=== PATIENT | female | born 1955 | race Caucasian/White ===

== ENCOUNTER 2022-03-26 17:47 | Observation (INO) | payer MEDICARE, SELFPAY ==
[2022-03-26] VITALS (10 sets, daily range): BP systolic 109–141; BP diastolic 68–91; PULSE 53–76; RESP 13–18; TEMP 36.5–36.9; O2SAT 96–100; BMI 28.4
--- NOTE | ~2022-03-26 | XR_ITS ---
EXAMINATION: XR chest 2V Exam Date/Time: 03/26/2022 18:40 CDT CLINICAL HISTORY: cp Comparison: None available. RESULT: Lines, tubes, and devices: None. Lungs and pleura: Clear. Cardiomediastinal silhouette: Unremarkable cardiomediastinal silhouette. Other: No acute osseous or upper abdominal finding. IMPRESSION: No acute cardiopulmonary process Reviewed, dictated and finalized at location K.
--- NOTE | 2022-03-26 18:03 | ECG_ITS ---
Measurements Intervals [place] Rate: 73 P: 45 MN: 148 QRS: 32 QRSD: 81 T: 51 QT: 367 QTc: 405 Interpretive Statements SINUS RHYTHM NORMAL ECG Electronically Signed On 03-26-2022 19:03:59 CDT by Karl Kuo D.O.
--- NOTE | 2022-03-26 18:20 | ED.CHESTPAIN ---
HPI - Chest Pain General Chief Complaint: Chest Pain Stated Complaint: epigastric/upper back pain Time Seen by Provider: 03/26/22 18:20 Source: patient and family Mode of arrival: ambulatory Limitations: no limitations History of Present Illness HPI narrative: Patient is 66 years old white female presents to the ED with chest pain. Patient was walking, about 1 hour ago, started having pain at the middle of her back, radiating to the front of the chest bilaterally, associated with shortness of breath, 10 out of 10. Currently 1 out of 10. Patient had LA in 2019, 2 stents, patient reports today symptoms exactly the same when she had LA 2018. Patient on baby aspirin once a day. Related Data Home Medications Medication Instructions Recorded Confirmed pravastatin 03/26/22 Allergies Allergy/AdvReac Type Severity Reaction Status Date / Time codeine Allergy Confusion Verified 03/26/22 18:26 ibuprofen [From Motrin] Allergy Heartburn Verified 03/26/22 18:26 Penicillins Allergy Hives Verified 03/26/22 18:26 morphine AdvReac Confusion Verified 03/26/22 18:26 Review of Systems Review of Systems: All systems reviewed & are unremarkable except as noted in HPI and below Exam Narrative: General appearance: Well-developed, well-nourished Skin: Normal color Head: Normocephalic, nontraumatic Eyes: Clear conjunctiva ENT: Oropharynx normal, ears normal, nose normal Neck: Supple, nontender Chest and respiratory: Airway patent, no respiratory distress, no accessory muscle use Heart: Regular rate/rhythm Abdomen: Soft, nontender, no organomegaly, quiet bowel sounds Vascular: Normal peripheral pulses, normal capillary refill. Musculoskeletal: Normal range of motion, nontender back Neurologic: Alert and oriented ?3, IMMIGRATION [place] is normal as tested, no gross motor deficit Course Consultations Consultation #1: Dr. Hodeg Date: 03/26/22 Time: 19:24 Consultation #2: Amy, nurse practitioner, hospitalist accepted patient admission. Date: 03/26/22 Time: 19:24 Vital Signs Vital signs: Vital Signs Temperature 36.9 C 03/26/22 18:03 Pulse Rate 76 03/26/22 18:03 Respiratory Rate 13 03/26/22 18:03 Blood Pressure 141/85 H 03/26/22 18:03 Pulse Oximetry 98 03/26/22 18:03 Temperature 36.9 C 03/26/22 18:03 Pulse Rate 76 03/26/22 18:03 Respiratory Rate 13 03/26/22 18:03 Blood Pressure 141/85 H 03/26/22 18:03 Pulse Oximetry 98 03/26/22 18:03 [facility] - Chest Pain Imaging Data Radiologist's impression: Impressions Chest X-Ray 03/26/22 18:48 IMPRESSION: No acute cardiopulmonary process ECG Data EKG #1: Attestation: I personally reviewed and interpreted this ECG as follows: ECG completion date: 03/26/22 ECG completion time: 18:33 Interpretation: Normal sinus rhythm at 73 bpm, normal EKG Critical Care Time Critical Care Time Critical Care Time: Yes Total Critical Care Time: 30 Discharge Plan Discharge Clinical Impression: Chest pain Qualifiers: Chest pain type: unspecified Qualified Code(s): R07.9 - Chest pain, unspecified Patient Disposition: Still a Patient Condition: Improved Additional Instructions: Admit to hospitalist, consult filling winder. Prescriptions: No Action pravastatin 40 mg tablet RF: 0 Follow-up/Referrals: Rashawn,Leona Kemp MD [Primary Care Provider] - Quality HEART score for chest pain patients History: highly suspicioius ECG: normal Age: > or = to 65 years Risk factors: > or = to 3 risk factors of atherosclerotic disease Troponin: < or = to 1x normal limit Heart score: 6
[2022-03-26 18:23] LABS: Basophils Absolute Auto 0.1 K/mm3 (0.0-0.1); Basophils Percent Auto 1.2 % (0.2-1.2); Eosinophils Absolute Auto 0.2 K/mm3 (0-0.3); Hemoglobin 14.3 g/dL (12.0-15.0); Immature Granulocyte Absolute 0.01 K/mm3 (0.00-0.031); Immature Granulocyte Percent A 0.2 % (0-0.5); Lymphocytes Absolute Auto 1.65 K/mm3 (0.9-3.2); Lymphocytes Percent Auto 38.7 % (18.3-44.2); Mean Corpuscular HGB Conc 34.9 g/dl (32-36); Mean Corpuscular Hemoglobin 33.9 pg (26-34); Mean Corpuscular Volume 97.2 fl (80-100); Mean Platelet Volume 9.6 fl (7.4-10.4); Monocytes Absolute Auto 0.3 K/mm3 (0.1-0.6); Neutrophils Percent Auto 47.9 % (45.5-73.1); Platelet Count Result 267 k/mm3 (150-375); Red Blood Count 4.22 M/mm3 (4.2-5.4); Red Cell Distribution Width 12.2 % (11.5-14.5); White Blood Count 4.3 K/mm3 (4.5-10.0)
[2022-03-26 18:34] LABS: INR 1.1; Prothrombin Time 13.3 Seconds (11.1-14.7)
[2022-03-26 18:36] LABS: Alanine Aminotransferase 20 U/L (6-35); Albumin Level 4.1 g/dL (3.5-5.1); Alkaline Phosphatase 70 U/L (38-126); Anion Gap 6 mmol/L (8-16); Aspartate Amino Transferase 28 U/L (14-36); Bilirubin,Total 0.3 mg/dL (0.2-1.3); Blood Urea Nitrogen 37 mg/dL (7-17); Calcium 8.7 mg/dL (8.4-10.2); Carbon Dioxide 27 mmol/L (22-30); Chloride 103 mmol/L (98-107); Estimated CRCL calculation 51 ml/min; Estimated Glomerular Filt Rate > 60; Glucose 106 mg/dL (65-110); Lipase 136 U/L (23-300); Sodium 136 mmol/L (137-145)
[2022-03-26] MEDS: ASPIRIN 81 MG CHEWABLE TABLET 324 MG PO (18:37)
[2022-03-26] MEDS: METOPROLOL TARTRATE 50 MG TAB 25 MG PO (18:39)
[2022-03-26 18:47] LABS: Troponin I < 0.012 ng/mL (0.000-0.034)
[2022-03-26 19:23] LABS: NT Pro B Type Natriuretic Pept 36 pg/mL (5-100)
[2022-03-26] MEDS: ENOXAPARIN 80 MG/0.8 ML SYRINGE SUB-Q (19:41)
[2022-03-26 20:08] LABS: SARS-CoV-2 RNA PCR Negative
--- NOTE | 2022-03-26 20:10 | PM.IMHP ---
H&P: HPI History of Present Illness Date/Time: 03/26/22 20:10 Chief Complaint: Chest pain. Narrative: This is a 66-year-old female with past medical history significant for coronary artery disease status post stent placement, dyslipidemia. Patient presented to the emergency room due to chest pain was she was walking in at a normal pace pain was localized to the retrosternal area with radiation to the back and around it lasted for roughly 20 minutes and a was not acting diaphoresis, nausea, vomiting, syncope, near syncope, lightheadedness, or dizziness, no nausea, no vomiting, no fevers, no rigors, no chills, no cough, no leg swelling, no ankle swelling. Patient has been in her usual state of health up until this episode in the morning. Preliminary workup has been essentially nonrevealing. Patient has been admitted for further evaluation ,management and treatment. Review of Systems Review of Systems: Chest pain. Constitutional: Constitutional: Denies chills, Denies fatigue, Denies fever(s), Denies malaise, Denies night sweats and Denies weakness Eyes: Eyes: Denies change in vision ENT: Denies dysphagia, Denies vertigo, Denies dizziness, Denies nasal congestion, Denies nasal discharge, Denies nasal obstruction and Denies odynophagia Cardiovascular: Cardiovascular: Reports chest pain, Denies pedal edema, Denies leg edema, Denies lightheadedness, Denies radiating jaw, neck or arm pain, Denies palpitations and Denies dyspnea on exertion Respiratory: Respiratory: Denies cough Gastrointestinal: Gastrointestinal: Denies abdominal pain, Denies dyspepsia, Denies heartburn, Denies diarrhea, Denies nausea and Denies vomiting Genitourinary: Genitourinary: Denies dysuria Musculoskeletal: Musculoskeletal: Denies back pain, Denies arthralgias and Denies joint swelling Integumentary/Breasts: Skin/Breast: Denies rash Neurologic: Denies focal weakness and Denies Sensory deficit (Neuro) Psychiatric: Psychiatric: Reports no additional psychiatric complaints and Reports as per HPI Endocrine: Endocrine: Denies cold intolerance, Denies heat intolerance, Denies polyphagia, Denies polydipsia and Denies palpitations Hematologic/Lymphatic: Hematologic/Lymphatic: Reports no additional hematologic/lymphatic complaints and Reports as per HPI Allergic/Immunologic: Allergic/Immunologic: Reports no additional allergic/immunologic complaints and Reports as per HPI [facility] Family History Family History (Updated 03/27/22 @ 00:17 by Ivania Montaño RN) Other Thyroid cancer cousin Father Skin cancer Leukemia Mother Congenital heart defect Hypertension Other Skin cancer paternal uncle Other Skin cancer paternal cousin Grandparent Diabetes mellitus Social History Social History Smoking status: Former smoker Alcohol intake: never Substance use: never Spiritual care concerns: No Meds Home Medications and Allergies Home Medications Medication Instructions Recorded Confirmed Type Centrum Silver Ultra Women's 1 tab-cap PO DAILY 03/26/22 03/26/22 History aspirin 81 mg PO DAILY 03/26/22 03/26/22 History omega-3 fatty acids-vitamin E 1 cap PO DAILY 03/26/22 03/26/22 History [Fish Oil] pravastatin 40 mg PO HS 03/26/22 03/26/22 History turmeric root-yoly root ext 1 tab-cap PO DAILY 03/26/22 03/26/22 History zinc gluconate 50 mg PO DAILY 03/26/22 03/26/22 History Allergies Allergy/AdvReac Type Severity Reaction Status Date / Time ibuprofen [From Motrin] Allergy Heartburn Verified 03/26/22 23:45 Penicillins Allergy Hives Verified 03/26/22 18:26 Sulfa (Sulfonamide Allergy Hives Verified 03/26/22 23:46 Antibiotics) codeine AdvReac Confusion Verified 03/26/22 23:46 morphine AdvReac Confusion Verified 03/26/22 23:45 Vital Signs Vital Signs - 24 hr 03/26/22 18:03 03/26/22 18:39 03/26/22 19:03 Temperature 98.4 F Pulse Rate 76 69 66
[2022-03-26 21:24] LABS: Troponin I < 0.012 ng/mL (0.000-0.034)
[2022-03-27] VITALS (14 sets, daily range): BP systolic 106–128; BP diastolic 63–80; PULSE 52–75; RESP 18–20; TEMP 36.6–36.9; O2SAT 98–100
--- NOTE | 2022-03-27 | EST_ITS ---
Patient Info Name: Gretel Wright Age: 66 years : 1955 Gender: Female Ht: 66 in Wt: 176 lbs BSA: 1.95 m2 HR: 78 bpm BP: 128 / 73 mmHg Technical Quality: Good Exam Date: 03/27/2022 1:42 PM Exam Location: [facility] Pulmonary Exam Room: 232 Patient Status: Inpatient Admit Date: 03/26/2022 Staff Ordering Physician: Yoel An MD Electrical Power Station Technician: Astrid Ni RDCS Attending Provider: JENNIFER BULLARD NP Referring Physician: Juve MCDONOUGH; Exercise Technologist: Vicki Delaney CT Exam Type: CA stress echo Study Info Indications - chest pain cad Treadmill exercise stress echocardiogram is performed. Summary 1. Sinus bradycardia. 2. No abnormal ST/T wave changes with exercise. 3. Negative graded exercise test to 85% of age predicted maximum heart rate. 4. Stress echo images demonstrate normal left ventricular systolic function at rest with no wall motion abnormalities and normal hyperdynamic response to exercise without evidence of stress-induced ischemia. Protocol: Ricardo Stress ECG Details Stage: REST Duration (min): 0 min : 52 sec Speed (mph): 0.0 Grade (%): 0 HR (bpm): 56 SBP (mmHg): 128 DBP (mmHg): 73 METS: --- Stage: REST Duration (min): 1 min : 4 sec Speed (mph): 0.0 Grade (%): 0 HR (bpm): 58 SBP (mmHg): 128 DBP (mmHg): 73 METS: --- Stage: REST Duration (min): 1 min : 20 sec Speed (mph): 0.0 Grade (%): 0 HR (bpm): 56 SBP (mmHg): 128 DBP (mmHg): 73 METS: --- Stage: REST Duration (min): 1 min : 30 sec Speed (mph): 0.0 Grade (%): 0 HR (bpm): 56 SBP (mmHg): 128 DBP (mmHg): 73 METS: --- Stage: REST Duration (min): 1 min : 54 sec Speed (mph): 0.0 Grade (%): 0 HR (bpm): 56 SBP (mmHg): 128 DBP (mmHg): 73 METS: --- Stage: REST Duration (min): 8 min : 11 sec Speed (mph): 0.0 Grade (%): 0 HR (bpm): 64 SBP (mmHg): 128 DBP (mmHg): 73 METS: --- Stage: REST Duration (min): 8 min : 52 sec Speed (mph): 0.0 Grade (%): 0 HR (bpm): 64 SBP (mmHg): 128 DBP (mmHg): 73 METS: --- Stage: STAGE 1 Duration (min): 1 min : 0 sec Speed (mph): 1.7 Grade (%): 10 HR (bpm): 94 SBP (mmHg): 128 DBP (mmHg): 73 METS: --- Stage: STAGE 1 Duration (min): 2 min : 0 sec Speed (mph): 1.7 Grade (%): 10 HR (bpm): 106 SBP (mmHg): 128 DBP (mmHg): 73 METS: --- Stage: STAGE 1 Duration (min): 3 min : 0 sec Speed (mph): 1.7 Grade (%): 10 HR (bpm): 109 SBP (mmHg): 149 DBP (mmHg): 70 METS: --- Stage: STAGE 2 Duration (min): 1 min : 0 sec Speed (mph): 2.5 Grade (%): 12 HR (bpm): 113 SBP (mmHg): 149 DBP (mmHg): 70 METS: --- Stage: STAGE 2 Duration (min): 2 min : 0 sec Speed (mph): 2.5 Grade (%): 12 HR (bpm): 114 SBP (mmHg): 168 DBP (mmHg
--- NOTE | 2022-03-27 00:15 | PC.NURSE ---
This patient, Gretel Wright, was admitted to IMU Room 232-01. Patient/family oriented to hospital policies and general routines including ID bracelet, bed and alarms, visiting hours, pain management, procedures, bathroom and other care routines, personal items, smoking policy, room service/diet, and visiting hours. Information on how to activate the Rapid Response Team has been discussed. Patient/Family are encouraged to report perceived risks to care and to ask questions if they do not understand what they are told or what they should do.
[2022-03-27 01:05] LABS: Troponin I < 0.012 ng/mL (0.000-0.034)
[2022-03-27] MEDS: ASPIRIN 81 MG CHEWABLE TABLET PO (08:31)
[2022-03-27 10:07] LABS: Basophils Percent Auto 0.8 % (0.2-1.2); Eosinophils Absolute Auto 0.2 K/mm3 (0-0.3); Eosinophils Percent Auto 3.2 % (0-4.4); Hematocrit 40.7 % (37.0-47.0); Hemoglobin 13.8 g/dL (12.0-15.0); Immature Granulocyte Absolute 0.01 K/mm3 (0.00-0.031); Immature Granulocyte Percent A 0.2 % (0-0.5); Lymphocytes Absolute Auto 1.14 K/mm3 (0.9-3.2); Lymphocytes Percent Auto 23.1 % (18.3-44.2); Mean Corpuscular HGB Conc 33.9 g/dl (32-36); Mean Corpuscular Hemoglobin 33.4 pg (26-34); Mean Corpuscular Volume 98.5 fl (80-100); Mean Platelet Volume 9.6 fl (7.4-10.4); Monocytes Absolute Auto 0.4 K/mm3 (0.1-0.6); Monocytes Percent Auto 7.3 % (2.6-8.5); Neutrophils Absolute Auto 3.2 K/mm3 (1.3-6.7); Neutrophils Percent Auto 65.4 % (45.5-73.1); Platelet Count Result 252 k/mm3 (150-375); Red Blood Count 4.13 M/mm3 (4.2-5.4); Red Cell Distribution Width 12.3 % (11.5-14.5); White Blood Count 4.9 K/mm3 (4.5-10.0)
[2022-03-27 10:45] LABS: Alanine Aminotransferase 18 U/L (6-35); Albumin Level 3.8 g/dL (3.5-5.1); Alkaline Phosphatase 74 U/L (38-126); Anion Gap 5 mmol/L (8-16); Aspartate Amino Transferase 28 U/L (14-36); Bilirubin,Total 0.6 mg/dL (0.2-1.3); Blood Urea Nitrogen 26 mg/dL (7-17); Calcium 8.6 mg/dL (8.4-10.2); Carbon Dioxide 28 mmol/L (22-30); Chloride 103 mmol/L (98-107); Estimated CRCL calculation 73 ml/min; Estimated Glomerular Filt Rate > 60; Glucose 105 mg/dL (65-110); Potassium 3.9 mmol/L (3.4-5.0); Sodium 136 mmol/L (137-145)
--- NOTE | 2022-03-27 11:30 | PM.DS ---
DS: Admitting Diagnosis Discharge Date 03/27/22 1130 Admitting Diagnosis Angina DS: Discharge Diagnosis Discharge Diagnosis (1) Chest pain: Code(s): R07.9 - Chest pain, unspecified Status: Acute Assessment and Plan: Serial Trops negative Continuous telemetry Cardiology consult Stress echo ordered Symptoms resolved Aspirin and nitro given in the ED Will need to follow up with Dr. Lyon out patient (2) Coronary artery disease: Code(s): I25.10 - Atherosclerotic heart disease of [place] coronary artery without angina pectoris Status: Acute Assessment and Plan: Status post stent placement roughly 2 years ago Continue statin and aspirin (3) Dyslipidemia: Code(s): E78.5 - Hyperlipidemia, unspecified Status: Acute Assessment and Plan: Continue statin Current lipid panel: Cholesterol 193, LDL 99, HDL 54, Triglycerides 94 DS: Summary Hospital Course Hospital Course: Patient is a 66-year-old female with a past medical history of coronary artery disease, dyslipidemia who presented the ED with complaints of chest pain. Patient stated that her chest pain was similar to the last time that she had her [place]. patient stated that her pain was more in her back breath shoulders. She stated that it felt like somebody had grabbed her and helped her. However she also stated that she had just recently got into a big argument with a family member and they had been texting back and forth and very negative manner. She stated that this could have also bed and anxiety induced. Patient was given aspirin and nitro in the ED and symptoms resolved after 20 minutes. Liver panel was drawn and all within normal limits. Troponins were negative x3. EKG showed normal sinus rhythm rate of 73. Cardiology has been consulted and a stress echo was performed. Currently patient states that she is feeling okay and is ready for discharge. Patient denies any chest pain, shortness of breath, nausea, vomiting, diarrhea, constipation, weakness or fatigue. Status at Discharge Functional status at discharge: independent ambulation Overall status at discharge: patient is progressing back to baseline Time Spent with Patient Time attestation: Total time spent providing and/or coordinating discharge services: 48 minutes Time spent: Greater than 30 minutes Specific discharge activities: Diagnostic testing, chart review, developing a treatment plan, education, care coordination documentation, physical exam, result review Exam Const: General: comfortable, no acute distress, well developed, alert, awake and other (Well-appearing, apprehensive.) Nutritional Appearance: average body habitus Orientation/consciousness: patient oriented x3 HENMT: Head: normal to inspection, normocephalic and atraumatic Ears: hearing grossly normal bilaterally General nose exam: Normal external nose present Face and sinus: normal facial exam Mouth: Yes Normal oral and palatal mucosa present Eyes: General: appearance normal, both eyes and all related structures Alignment and Position: alignment normal Sclera: sclerae normal Pupils: Equal, round and reactive pupils present EOM: EOMs intact bilaterally Neck: Neck: normal visual inspection, full ROM, no lymphadenopathy, supple and no JVD Thyroid: thyroid normal Lymphatic: no lymphadenopathy noted Resp: Effort & Inspection: normal respiratory effort and able to speak in complete sentences Auscultation: clear to auscultation bilaterally, no crackles, no rales, no rhonchi and no wheezes Cardio: Jugular venous distension: no JVD Rate: regular rate Rhythm: regular rhythm Heart sounds: S1 normal heart sound present and S2 normal heart sound present GI: Inspection: normal to inspection : General: Yes deferred Skin: Rashes: no rashes Wounds: no wounds Neuro: General: patient oriented x3 and CN's II-XI intact bilaterally Cranial nerves: Yes CN's II-XII intact bila
[2022-03-27 12:40] LABS: Cholesterol 193 mg/dL (0-200); HDL Direct 54 mg/dL; Triglycerides 94 mg/dL (<150)
[2022-03-27 12:51] LABS: LDL Cholesterol Direct 99 mg/dL
--- NOTE | 2022-03-27 12:55 | PM.CNCAR ---
Assessment and Plan Additional Plan This is a 66-year-old lady known to have coronary disease with emergency PCI done in 2 in the setting of acute MD followed by a staged intervention after that. She apparently has been doing well in the years that have followed this procedure. She now enters the hospital here yesterday with the self-limited episode of distant symptoms as described in my note. There is no evidence of acute coronary syndrome by ECG or by biomarkers. I believe because of her known history of coronary disease we should conduct a stress echocardiogram and I am going to try to get that done this afternoon. Hopefully that will be negative. She will of course continue to follow-up with her established physicians after discharge from [facility]. If her stress echo is unfavorable then we need to consider angiography here. Yoel An MD [facility] History of Present Illness History of Present Illness Consult date/time: 03/27/22 12:55 Consult reason: chest pain Reason For Visit: Chest Pain Narrative: This is a 66-year-old woman I am seeing at the request of the hospitalist this afternoon because of chest pain with which she was admitted to hospital yesterday. She is unknown to us here at [facility] prior to this admission. The patient feels well at this time and offers no complaints. She was doing her usual household activities yesterday when she began to experience some chest pain that he describes starting as an interscapular discomfort and radiating around to the left and right aspects of the chest to the anterior substernal location. The discomfort raise concern on her part because she does have a history of coronary artery disease and was obviously concerned about her symptoms. She says that the discomfort altogether lasted for approximately 20 minutes and then subsided spontaneously before she arrived here for any further evaluation. In the emergency room her electrocardiogram was found to be normal. Her biomarkers were negative she was admitted to the hospital for further evaluation. the patient remains asymptomatic and offers no other complaints now. 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 She denies any orthopnea PND edema palpitations or history of syncope. 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 Review of Systems Constitutional: Constitutional: Reports no additional constitutional complaints Eyes: Eyes: Reports no additional eye complaints ENT: Reports system reviewed and no additional complaints, except as documented Cardiovascular: Cardiovascular: Reports as per HPI Respiratory: Respiratory: Reports no additional respiratory complaints Gastrointestinal: Gastrointestinal: Reports no additional gastrointestinal complaints Genitourinary: Genitourinary: Reports no additional female genitourinary complaints Musculoskeletal: Musculoskeletal: Reports no additional musculoskeletal complaints Integumentary/Breasts: Skin/Breast: Reports system reviewed and no additional complaints, except as docu Neurologic: Reports system reviewed and no additional complaints, except as documented Endocrine: Endocrine: Reports no additional endocrine complaints Hematologic/Lymphatic: Hematologic/Lymphatic: Reports no additional hematologic/lymphatic complaints Allergic/Immunologic: Allergic/Immunologic: Reports no additional allergic/immunologic complaints [facility] Family History Family History (Updated 03/27/22 @ 00:17 by Ivania Montaño RN) Other Thyroid cancer cousin Father Skin cancer Leukemia Mother Congenital heart defect Hypertension Other Skin cancer paternal uncle Other Skin cancer paternal
--- NOTE | 2022-03-27 13:25 | PC.NURSE ---
Pt to cardiology department for stress echo via wheelchair
--- NOTE | 2022-03-27 14:15 | PC.NURSE ---
Pt returned from stress echo via wheelchair
--- NOTE | 2022-03-27 16:01 | PM.IMPN ---
Progress Note: A&P Assessment and Plan (1) Chest pain: Code(s): R07.9 - Chest pain, unspecified Status: Acute Assessment and Plan: Serial Trops negative Continuous telemetry Cardiology consult Stress echo ordered Symptoms resolved Aspirin and nitro given in the ED Will need to follow up with Dr. Lyon out patient (2) Coronary artery disease: Code(s): I25.10 - Atherosclerotic heart disease of [place] coronary artery without angina pectoris Status: Acute Assessment and Plan: Status post stent placement roughly 2 years ago Continue statin and aspirin (3) Dyslipidemia: Code(s): E78.5 - Hyperlipidemia, unspecified Status: Acute Assessment and Plan: Continue statin Current lipid panel: Cholesterol 193, LDL 99, HDL 54, Triglycerides 94 Subjective Date/time seen: 03/27/22 11:30 Interval history: Date/Time: 03/26/22 20:10 Narrative: This is a 66-year-old female with past medical history significant for coronary artery disease status post stent placement, dyslipidemia. Patient presented to the emergency room due to chest pain was she was walking in at a normal pace pain was localized to the retrosternal area with radiation to the back and around it lasted for roughly 20 minutes and a was not acting diaphoresis, nausea, vomiting, syncope, near syncope, lightheadedness, or dizziness, no nausea, no vomiting, no fevers, no rigors, no chills, no cough, no leg swelling, no ankle swelling. Patient has been in her usual state of health up until this episode in the morning. Preliminary workup has been essentially nonrevealing. Patient has been admitted for further evaluation ,management and treatment. Date/Time 03/27/22 1130 Review of Systems Review of Systems: All systems reviewed & are unremarkable except as noted in HPI and below Exam Const: General: comfortable, no acute distress, well developed, alert, awake and other (Well-appearing, apprehensive.) Nutritional Appearance: average body habitus Orientation/consciousness: patient oriented x3 HENMT: Head: normal to inspection, normocephalic and atraumatic Ears: hearing grossly normal bilaterally General nose exam: Normal external nose present Face and sinus: normal facial exam Mouth: Yes Normal oral and palatal mucosa present Eyes: General: appearance normal, both eyes and all related structures Alignment and Position: alignment normal Sclera: sclerae normal Pupils: Equal, round and reactive pupils present EOM: EOMs intact bilaterally Neck: Neck: normal visual inspection, full ROM, no lymphadenopathy, supple and no JVD Thyroid: thyroid normal Lymphatic: no lymphadenopathy noted Resp: Effort & Inspection: normal respiratory effort and able to speak in complete sentences Auscultation: clear to auscultation bilaterally, no crackles, no rales, no rhonchi and no wheezes Cardio: Jugular venous distension: no JVD Rate: regular rate Rhythm: regular rhythm Heart sounds: S1 normal heart sound present and S2 normal heart sound present GI: Inspection: normal to inspection : General: Yes deferred Skin: Rashes: no rashes Wounds: no wounds Neuro: General: patient oriented x3 and CN's II-XI intact bilaterally Cranial nerves: Yes CN's II-XII intact bilaterally and Yes Equal, round and reactive pupils present Cognition (Neuro): normal cognition Speech: normal speech Gait exam (Neuro): Normal gait present Motor exam (neuro): 5/5 motor strength present throughout Sensory Exam: No Sensory deficit (Neuro) Extrem: General: normal to inspection, full ROM, no joint enlargement and no pedal edema Objective Data Vital Signs Vital Signs: Vital Signs - 24 hr 03/26/22 18:03 03/26/22 18:39 03/26/22 19:00 Temperature 98.4 F Pulse Rate 76 69 56 L Respiratory Rate 13 Blood Pressure 141/85 H Pulse Oximetry 98 03/26/22 19:03 03/26/22 22:51 03/26/22 22:52 Temperature Pulse Rate 66 58
== END 2022-03-27 18:41 | disposition home or self-care (01) ==
LOC: ANHED 19:13 → ANHIMU 03-27 03:17
PROVIDERS: Admitting Provider Hospitalist; Emergency Provider Emergency Medicine; PCP Internal Medicine; Visit Provider Nurse Practitioner
DX: R07.9 Chest pain, unspecified (principal); R06.02 Shortness of breath; I25.2 Old myocardial infarction; E78.5 Hyperlipidemia, unspecified; Z95.5 Presence of coronary angioplasty implant and graft; Z20.822 Contact with and (suspected) exposure to COVID-19
CPT/HCPCS: 36415; 71046; 80053; 80061; 83690; 83735; 83880; 84484; 85025; 85610; 85730; 93005; 93351; 96372; 99285; A9270; C9803; G0378; J1650; U0003; U0005

== ENCOUNTER → 2022-07-18 10:25 | Outpatient (CLI) | payer MEDICARE, SELFPAY ==
--- NOTE | ~2022-07-18 | DEXA_ITS ---
Bone Density Report Name: CICI LESLIE Age: 66 Sex: Female Ethnicity: White Date of : 1955 Indication: postmenopausal; screening for osteoporosis; parental hip fracture; height loss; Referring Provider: UMU MARTIN Study: Bone densitometry was performed. Exam Date: July 18, 2022 Accession number: [id number] Bone Density: Region BMD T-score Z-score Classification AP Spine (L1-L4) 0.937 -1.0 0.9 Normal Femoral Neck (Left) 0.593 -2.3 -0.7 Osteopenia Total Hip (Left) 0.717 -1.8 -0.5 Osteopenia Femoral Neck (Right) 0.637 -1.9 -0.3 Osteopenia Total Hip (Right) 0.732 -1.7 -0.4 Osteopenia Total Hip Mean 0.725 -1.8 -0.5 Osteopenia World Health Organization criteria for BMD impression classify patients as: Normal (T-score at or above -1.0), Osteopenia (T-score between -1.0 and -2.5), or Osteoporosis (T-score at or below -2.5). 10-year Fracture Risk(1): Major Osteoporotic Fracture 21% Hip Fracture 3.1% Reported Risk Factors: [place] (), Neck BMD=0.593, BMI=27.7, parental fracture (1) FRAX(R) Version 3.08. Fracture probability calculated for an untreated patient. Fracture probability may be lower if the patient has received treatment. Clinical Information Provided by Patient: Parent has had a hip fracture Patient maximum height was 66.5 Menopause Age: 50 Drinks caffeinated beverages Onset of menses at age 12 Number of children 3 Impression: The patient has low bone mass, based on the Left Femoral Neck T-score. The patient has an estimated ten-year risk of hip fracture of 3.1% and an estimated ten-year risk of major fracture of 21%, based on the WHO FRAX algorithm. The patient has risk factors, including: parental hip fracture. Discussion: BONE DENSITY IS LOW AT ONE OR MORE SKELETAL SITES. THE PATIENT'S BMD AND CLINICAL RISK FACTORS CONTRIBUTE TO THIS PATIENT'S HIGH RISK OF FRACTURE. This patient's lowest T-score is low at one or more skeletal sites. It meets the World Health Organization's (WHO) criteria for ?low bone mass? (T-score between -1.0 and -2.5). The patient's 10-year risk of hip fracture and 10 year risk of a major osteoporotic fracture as calculated by FRAX exceeds the threshold where pharmacological therapy is recommended by the National Osteoporosis Foundation (NOF). However, all treatment decisions require clinical judgment and consideration of individual patient factors, including patient preferences, comorbidities, previous drug use, risk factors not captured in the FRAX model (e.g., frailty, falls, vitamin D deficiency, increased bone turnover, interval significant decline in bone density) and possible under or overestimation of fracture risk by FRAX. The patient should follow a healthful lifestyle (good nutrition with adequate calcium and vitamin D, and appropriate
== END ==
PROVIDERS: PCP Internal Medicine
DX: Z78.0 Asymptomatic menopausal state (principal); M85.852 Other specified disorders of bone density and structure, left thigh; M85.851 Other specified disorders of bone density and structure, right thigh
CPT/HCPCS: 77080